=== PATIENT | male | born 1965 | race African-American/Black ===

== ENCOUNTER 2018-09-16 12:56 | Inpatient (IN) | payer MEDICAID, MEDICARE ==
[~2018-09-16] VITALS: Ht 177.8 cm; Wt 95.3 kg
[2018-09-16] MEDS ORDERED: SODIUM CHLORIDE 0.9% 1,000 ML IV ONE (13:16)
[2018-09-16 13:46] LABS: BG BASE EXCESS 6.6 mmol/L (-2.0-2.0); BG CARBOXYHEMOGLOBIN 1.7 % (0.5-1.5); BG DEOXYHEMOGLOBIN 1.7 % (0.0-5.0); BG FRACTION INSPIRED OXYGEN 21; BG HCO3 ACT 28.1 mmol/L (22.0-26.0); BG METHEMOGLOBIN 0.4 % (0.0-1.5); BG OXYGEN SATURATION 98.3 % (92.0-98.5); BG OXYHEMOGLOBIN 96.2 % (94.0-97.0); BG PCO2 30.1 mmHg (35.0-45.0); BG PH 7.588 (7.350-7.450); BG SAMPLE SITE RIGHT BRACHIAL; BG TOTAL HEMOGLOBIN 11.6 g/dL (12.0-18.0); BG VENT MODE ROOM AIR
[2018-09-16 14:22] LABS: BASOPHILS % 0.8 % (0.0-2.0); EOSINOPHILS % 5.8 % (0.0-5.0); HEMATOCRIT. 33.4 % (42.0-52.0); HEMOGLOBIN. 11.1 g/dL (14.0-18.0); LYMPHOCYTES % 27.6 % (20.0-50.0); MEAN CORPUSCULAR VOLUME 87.2 fL (80.0-94.0); MEAN PLATELET VOLUME 7.8 fl (7.4-10.4); MONOCYTES % 11.4 % (2.0-8.0); NEUTROPHILS % 54.4 % (40.0-76.0); PLATELET 251 x1000/uL (130-400); RED BLOOD CELL COUNT 3.83 mill/uL (4.7-6.1); RED CELL DISTRIBUTION WIDTH 16.5 % (11.6-14.6)
[2018-09-16 14:30] LABS: INR 1.1; PARTIAL THROMBOPLASTIN TIME 26.2 sec (23.4-31.0); PROTHROMBIN TIME 11.2 sec (9.1-11.1)
[2018-09-16 14:32] LABS: CHLORIDE 97 mEq/L (98-107); ETHANOL BLOOD < 10 mg/dL
[2018-09-16] MEDS ORDERED: ONDANSETRON HCL 4MG/2ML INJ IV ONE (14:45)
[2018-09-16 15:18] LABS: CLARITY URINE CLOUDY (CLEAR); COLOR URINE ORANGE (YELLOW); KETONES URINE TRACE (NEGATIVE); LEUKOCYTE ESTERASE URINE 2+ (NEGATIVE); NITRITE URINE POSITIVE (NEGATIVE); OCCULT BLOOD URINE NEGATIVE (NEGATIVE); PROTEIN URINE 2+ (NEGATIVE); SPECIFIC GRAVITY URINE 1.026 (1.005-1.030)
[2018-09-16 15:41] LABS: *AMPHETAMINES SCREEN URINE NEGATIVE (NEGATIVE); *BARBITURATES SCREEN URINE NEGATIVE (NEGATIVE); *BENZODIAZEPINES SCREEN URINE NEGATIVE (NEGATIVE); *COCAINE SCREEN URINE PRESUMTIVE POSITIVE (NEGATIVE)
[2018-09-16 15:42] LABS: CANNABINOID URINE SCREEN PRESUMTIVE POSITIVE (NEGATIVE); METHADONE URINE SCREEN NEGATIVE (NEGATIVE); OPIATES URINE SCREEN NEGATIVE (NEGATIVE); PHENCYCLIDINE URINE SCREEN NEGATIVE (NEGATIVE)
[2018-09-16] MEDS ORDERED: CEFTRIAXONE 1 G PREMIX 50 ML IV ONE (15:45)
[2018-09-16 16:45] VITALS: BP 111/78
[2018-09-16] MEDS ORDERED: ACETAMINOPHEN 325MG TABLET PO PRN (19:45)
[2018-09-16] MEDS ORDERED: HYDROCODONE/ACETAMINOPHEN 5/325MG TABLET PO PRN (19:45)
[2018-09-16] MEDS ORDERED: ONDANSETRON HCL 4MG/2ML INJ IV PRN (19:45)
[2018-09-16 20:00] VITALS: BP 114/75
[2018-09-17 04:00] VITALS: BP 121/82
[2018-09-17 06:16] LABS: BASOPHILS % 0.5 % (0.0-2.0); EOSINOPHILS % 8.6 % (0.0-5.0); HEMATOCRIT. 30.1 % (42.0-52.0); HEMOGLOBIN. 9.9 g/dL (14.0-18.0); LYMPHOCYTES % 33.2 % (20.0-50.0); MEAN CORPUSCULAR VOLUME 87.9 fL (80.0-94.0); MEAN PLATELET VOLUME 7.8 fl (7.4-10.4); MONOCYTES % 14.3 % (2.0-8.0); NEUTROPHILS % 43.4 % (40.0-76.0); PLATELET 236 x1000/uL (130-400); RED BLOOD CELL COUNT 3.42 mill/uL (4.7-6.1); RED CELL DISTRIBUTION WIDTH 16.3 % (11.6-14.6)
[2018-09-17 06:55] LABS: CHLORIDE 98 mEq/L (98-107)
[2018-09-17 08:00] VITALS: BP 124/85
[2018-09-17] MEDS ORDERED: POTASSIUM CHLORIDE 20MEQ TABLET SR PO SCH (08:15)
[2018-09-17] MEDS: SODIUM CHLORIDE 0.9% 1,000 ML IV SCH ×2 (09:32→17:11)
[2018-09-17] MEDS ORDERED: DEXTROSE 50% WATER 50ML SYRINGE IV PRN (10:00)
[2018-09-17] MEDS: CEFTRIAXONE 1 G PREMIX 50 ML IV SCH (11:00)
[2018-09-17 12:00] VITALS: BP 103/64
[2018-09-17] MEDS: BLOOD SUGAR DIAGNOSTIC STRIP TEST SCH ×3 (12:32→20:42)
[2018-09-17] MEDS: NICOTINE 21MG PATCH TD SCH (12:32)
[2018-09-17] MEDS: INSULIN LISPRO 100 UNITS/ML SUBCUT SCH ×3 (12:42→20:42)
[2018-09-17 16:00] VITALS: BP 107/66
[2018-09-17 20:00] VITALS: BP 102/69
[2018-09-18] VITALS: BP 110/73
[2018-09-18 04:00] VITALS: BP 114/76
[2018-09-18] MEDS: SODIUM CHLORIDE 0.9% 1,000 ML IV SCH ×2 (06:19→11:45)
[2018-09-18] MEDS: INSULIN LISPRO 100 UNITS/ML SUBCUT SCH ×4 (06:21→21:00)
[2018-09-18] MEDS: BLOOD SUGAR DIAGNOSTIC STRIP TEST SCH ×4 (06:21→21:00)
[2018-09-18 08:00] VITALS: BP 113/75
[2018-09-18] MEDS: NICOTINE 21MG PATCH TD SCH (08:33)
[2018-09-18 11:35] VITALS: BP 124/76
[2018-09-18] MEDS: CEFTRIAXONE 1 G PREMIX 50 ML IV SCH (13:03)
[2018-09-18 16:00] VITALS: BP 129/80
[2018-09-18 20:00] VITALS: BP 116/75
[2018-09-19] VITALS: BP 104/71
[2018-09-19] MEDS: SODIUM CHLORIDE 0.9% 1,000 ML IV SCH (01:05)
[2018-09-19 01:52] VITALS: BP 116/75
[2018-09-19 04:00] VITALS: BP 124/82
[2018-09-19] MEDS: BLOOD SUGAR DIAGNOSTIC STRIP TEST SCH (07:24)
[2018-09-19] MEDS: INSULIN LISPRO 100 UNITS/ML SUBCUT SCH (08:54)
[2018-09-19 10:06] VITALS: BP 122/72
== END 2018-09-19 12:12 | disposition home or self-care (01) | DRG 720 ==
LOC: ER 12:56 → EDBEDREQ 13:55 → EDBEDREQSVC 13:55 → 6WST 15:19 → EDBEDREQ 15:23 → EDBEDREQTM 15:23 → ENRESERV 15:34
PROVIDERS: ADMIT Hospitalist; ATTEND Hospitalist
DX: A41.9 Sepsis, unspecified organism (principal); E87.2 Acidosis; E44.1 Mild protein-calorie malnutrition; E11.9 Type 2 diabetes mellitus without complications; N39.0 Urinary tract infection, site not specified; I10 Essential (primary) hypertension; F17.200 Nicotine dependence, unspecified, uncomplicated; I25.10 Atherosclerotic heart disease of native coronary artery without angina pectoris; E87.8 Other disorders of electrolyte and fluid balance, not elsewhere classified
CPT/HCPCS: 36415; 36600; 71045; 80305; 82375; 82805; 82962; 83605; 83880; 84145; 84484; 86850; 86900; 93005; 96361; 96374; 99285; G0482; J0696; J1815; J2405; J7030